=== PATIENT | female | born 2005 | race African-American/Black ===

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

== ENCOUNTER 2024-05-29 17:14 | Emergency (ER) | payer OTHER ==
[2024-05-29] MEDS ORDERED: NA CHLORIDE 0.9% 1,000 ML ONE (17:31)
[2024-05-29 17:40] LABS: Absolute Eosinophils 0.1 K/uL (0-0.5); Absolute Lymphocytes (CBC) 1.8 K/uL (0.7-4.9); Absolute Monocytes 0.9 K/uL (0.1-1.3); Absolute Neutrophil 6.7 K/uL (1.8-8.0); Basophils % 0.3 % (0-1.3); Eosinophils % 1.3 % (0-4.4); Hematocrit 27.2 % (36.0-45.0); Hemoglobin 8.7 g/dL (12.0-15.0); Lymphocytes % 18.7 % (15.3-44.8); MCH 22.3 pg (27.0-35.0); MCHC 31.9 g/dL (32.0-36.0); MCV 69.9 fL (80-100); MPV 7.8 fL (7.6-11.3); Monocytes % 9.8 % (3.3-12.3); Neutrophils % 69.9 % (41.7-73.7); Platelets 281 thou/uL (152-406); RBC Red Blood Cell Count 3.89 M/uL (3.86-4.86); Red Cell Distribution Width 18.4 % (12.1-15.2)
[2024-05-29 17:48] LABS: Anion Gap 10.7 mEq/L (5.0-15.0); Potassium 3.7 mEq/L (3.5-5.1)
--- NOTE | 2024-05-29 18:04 | ER ---
Nurse's Notes [facility] Name: Kate Armas Age: 19 yrs Sex: Female : 2005 Arrival Date: 05/29/2024 Time: 17:14 Bed 1 Private MD: Diagnosis: 36 weeks gestation of -early active labor;Anemia, unspecified Presentation: 05/29 17:24 Chief complaint: Patient states: "I'm 35 weeks and started having tightness in ko1 my abdomen. About 1 hr ago, I think my water broke and I had a thick/white discharge pass. My OB is Dr. Meyres in [facility].". Coronavirus screen: At this time, the client does not indicate any symptoms associated with coronavirus-19. Ebola Screen: No symptoms or risks identified at this time. Initial Sepsis Screen: Does the patient meet any 2 criteria? No. Patient's initial sepsis screen is negative. Does the patient have a suspected source of infection? No. Patient's initial sepsis screen is negative. Risk Assessment: Do you want to hurt yourself or someone else? Patient reports no desire to harm self or others. Onset of symptoms was May 29, 2024. 17:24 Method Of Arrival: Wheelchair ko1 17:24 Acuity: ORTEGA 2 ko1 Triage Assessment: 17:26 General: Appears in no apparent distress. Behavior is cooperative. Pain: Denies pain. ko1 EENT: No signs and/or symptoms were reported regarding the EENT system. Neuro: Level of Consciousness is awake, alert, obeys commands, Oriented to person, place, time, situation, Appropriate for age. Cardiovascular: Patient's skin is warm and dry. Respiratory: Airway is patent Respiratory effort is even, unlabored, Respiratory pattern is regular, symmetrical. GI: No signs and/or symptoms were reported involving the gastrointestinal system. : No signs and/or symptoms were reported regarding the genitourinary system. Derm: Skin is pink, warm \\T\\ dry. Musculoskeletal: Range of motion: intact in all extremities. 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 - Infectious Disease History:: Denies. - Social history:: Smoking status: Patient denies any tobacco usage or history of. - Family history:: not pertinent. Screenin:27 [facility] ED Fall Risk Assessment (Adult) History of falling in the last 3 months, ko1 including since admission No falls in past 3 months (0 pts) Confusion or Disorientation No (0 pts) Intoxicated or Sedated No (0 pts) Impaired Gait No (0 pts) Mobility Assist Device Used No (0 pt) Altered Elimination No (0 pt) Score/Fall Risk Level 0 - 2 = Low Risk Oriented to surroundings, Maintained a safe environment, Educated pt \\T\\ family on fall prevention, incl call for assistance when getting out of bed. Abuse screen: Denies threats or abuse. Nutritional screening: No deficits noted. Tuberculosis screening: No symptoms or risk factors identified. Assessment: 17:25 General: Appears in no apparent distress. Behavior is calm, cooperative, appropriate ko1 for age. Pain: Denies pain. Neuro: No deficits noted. Cardiovascular: No deficits noted. Respiratory: No deficits noted. GI: No deficits noted. : No deficits noted. EENT: No deficits noted. Derm: No deficits noted. Musculoskeletal: No deficits noted. Vital Signs: 17:24 BP 138 / 62; Pulse 96; Resp 18; Temp 98; Pulse Ox 100% on R/A; Weight 99.79 kg; Height ko1 5 ft. 5 in. ; Pain 0/10; 17:25 BP 138 / 62; Pulse 92; Resp 16; Pulse Ox 99% ; ko1 18:30 BP 124 / 70; Pulse 88; Resp 16; Pulse Ox 99% ; ko1 17:24 Body Mass Index 36.61 (99.79 kg, 165.1 cm) ko1 17:24 Pain Scale: Adult ko1 Vitals: 17:27 Heart Tones 140 bpm. ko1 ED Course: 17:19 Patient arrived in ED. im 17:21 Nena Eckert RN is Primary Nurse. ko1 17:22 Georges Rodriguez MD is Attending Physician. haroon 17:24 Arm band placed on. ko1 17:25 Door closed. Noise minimized. Lights dimmed. Warm blanket given. Pillow given. ko1 17:25 Assist provider with pelvic exam: Patient tolerated well. ko1 17:26 Triage completed. ko1 17:28 Placed in gown. Bed in low position. Call light in reach. Side rails up X 1. Provided ko1 Education on: press call light if needing anything. Client placed on continuous cardiac and pulse oximetry monitoring. NIBP monitoring applied. 17:30 Initial lab(s) drawn, by hi, sent to lab. Inserted saline lock: 20 gauge in left ap3 antecubital area, using aseptic technique. Blood collected. 17:57 TRANSVAG OB CERVIX ASSESSMENT In Process Unspecified. EDMS 17:58 US OB Limited In Process Unspecified. EDGA 18:08 \\T\\[address] Rodriguez with Summer from the [facility] Transfer center/ \\T\\1750 administrative approval given to Dr. Rodriguez by Summer Mchugh Rn/ patient has been accepted to [facility] Lidia\\T\\Valerie. Dr. Ruy Burgess has accepted the patient in transfer/ report to be called to [phone]. 18:30 Patient transferred, IV remains in place. ko1 Administered Medications: 17:33 Drug: NS 0.9% IV 1000 ml IV at 1 bolus Per protocol; 1000 mL bolus Route: IV; Rate: 1 ko1 bolus; Site: left antecubital; Medication: 17:25 VIS not applicable for this client. ko1 Outcome: 18:04 ER care complete, transfer ordered by MD. patiño 18:30 Transferred by ground EMS to [facility], Transfer form ko1 completed. 18:30 Condition: stable 18:30 Instructed on the need for transfer, 18:55 Patient left the ED. ko1 Signatures: Dispatcher [employer] Georges Velazquez MD MD cha Prokisch, Amanda, RN RN ap3 Katarina Vang Kathy, RN RN ko1 Pema Rothman Corrections: (The following items were deleted from the chart) 18:31 17:27 2, Full Term 2, Premature 0, 0, Living 1, unknown ko1 ko1
--- NOTE | 2024-05-29 18:04 | EDPHYS ---
[facility] Name: Kate Armas Age: 19 yrs Sex: Female : 2005 Arrival Date: 05/29/2024 Time: 17:14 Bed 1 Private MD: ED Physician Georges Rodriguez HPI: 05/29 17:40 This 19 yrs old Black Female presents to ER via Wheelchair with complaints of 35 weeks haroon , possible water breaking. 17:40 The patient presents with abdominal pain in the lower abdomen. Onset: The haroon symptoms/episode began/occurred this morning. The patient presents to the emergency department with possible uterine contractions, irregular. The estimated gestational age is 36 weeks. Previous pregnancies: in previous pregnancies patient has had vaginal delivery. 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 - Infectious Disease History:: Denies. - Social history:: Smoking status: Patient denies any tobacco usage or history of. - Family history:: not pertinent. ROS: 17:40 Constitutional: Negative for fever, chills, and weight loss, Eyes: Negative for injury, haroon pain, redness, and discharge, ENT: Negative for injury, pain, and discharge, Neck: Negative for injury, pain, and swelling, Cardiovascular: Negative for chest pain, palpitations, and edema, Respiratory: Negative for shortness of breath, cough, wheezing, and pleuritic chest pain, Exam: 17:44 Constitutional: This is a well developed, well nourished patient who is awake, alert, haroon and in no acute distress. Head/Face: Normocephalic, atraumatic. Eyes: Pupils equal round and reactive to light, extra-ocular motions intact. Lids and lashes normal. Conjunctiva and sclera are non-icteric and not injected. Cornea within normal limits. Periorbital areas with no swelling, redness, or edema. ENT: Nares patent. No nasal discharge, no septal abnormalities noted. Tympanic membranes are normal and external auditory canals are clear. Oropharynx with no redness, swelling, or masses, exudates, or evidence of obstruction, uvula midline. Mucous membranes moist. Neck: Trachea midline, no thyromegaly or masses palpated, and no cervical lymphadenopathy. Supple, full range of motion without nuchal rigidity, or vertebral point tenderness. No Meningismus. Chest/axilla: Normal chest wall appearance and motion. Nontender with no deformity. No lesions are appreciated. Cardiovascular: Regular rate and rhythm with a normal S1 and S2. No gallops, murmurs, or rubs. Normal PMI, no JVD. No pulse deficits. Respiratory: Lungs have equal breath sounds bilaterally, clear to auscultation and percussion. No rales, rhonchi or wheezes noted. No increased work of breathing, no retractions or nasal flaring. Abdomen/GI: Soft, non-tender, with normal bowel sounds. No distension or tympany. No guarding or rebound. No evidence of tenderness throughout. Back: No spinal tenderness. No costovertebral tenderness. Full range of motion. Skin: Warm, dry with normal turgor. Normal color with no rashes, no lesions, and no evidence of cellulitis. MS/ Extremity: Pulses equal, no cyanosis. Neurovascular intact. Full, normal range of motion. Neuro: Awake and alert, GCS 15, oriented to person, place, time, and situation. Cranial nerves II-XII grossly intact. Motor strength 5/5 in all extremities. Sensory grossly intact. Cerebellar exam normal. Normal gait. Psych: Awake, alert, with orientation to person, place and time. Behavior, mood, and affect are within normal limits. Vital Signs: 17:24 BP 138 / 62; Pulse 96; Resp 18; Temp 98; Pulse Ox 100% on R/A; Weight 99.79 kg; Height ko1 5 ft. 5 in. ; Pain 0/10; 17:25 BP 138 / 62; Pulse 92; Resp 16; Pulse Ox 99% ; ko1 18:30 BP 124 / 70; Pulse 88; Resp 16; Pulse Ox 99% ; ko1 17:24 Body Mass Index 36.61 (99.79 kg, 165.1 cm) ko1 17:24 Pain Scale: Adult ko1 MDM: 17:22 Patient medically screened. haroon 17:48 Differential diagnosis: Rkaig felton, delivery of , urinary tract infection. haroon Data reviewed: vital signs, nurses notes, lab test result(s), radiologic studies, ultrasound. Consideration of Admission/Observation Escalation of care including admission/observation considered. I considered the following discharge prescriptions or medication management in the emergency department Medications were administered in the Emergency Department. See MAR. Independent interpretation of the following test(s) in the Emergency Department Radiology Department Ultrasound: My interpretation is ob usg. Test considered but Not performed: MRI: no abd mri. Historians other than the Patient: pt well informed. Care significantly affected by the following chronic conditions: none, a0. 05/29 17:23 Order name: Abo/rh Typing; Complete Time: 18:36 [facility] 05/29 17:23 Order name: Basic Metabolic Panel; Complete Time: 18:36 [facility] 05/29 17:23 Order name: CBC with Diff [facility] 05/29 17:23 Order name: US OB Limited; Complete Time: 18:36 [facility] 05/29 17:57 Order name: TRANSVAG OB CERVIX ASSESSMENT; Complete Time: 18:36 EDND 05/29 17:23 Order name: IV Saline Lock; Complete Time: 17:30 [facility] 05/29 17:23 Order name: Labs collected and sent; Complete Time: 17:30 haroon 05/29 17:23 Order name: NPO; Complete Time: 17:28 [facility] 05/29 17:23 Order name: Misc. Order: toco on; Complete Time: 17:30 haroon Administered Medications: 17:33 Drug: NS 0.9% IV 1000 ml IV at 1 bolus Per protocol; 1000 mL bolus Route: IV; Rate: 1 ko1 bolus; Site: left antecubital; Disposition Summary: 05/29/24 18:04 Transfer Ordered Notes: [facility] Reason: Higher level of care haroon Condition: Stable haroon Problem: new haroon Symptoms: have improved haroon Accepting Physician: to l\T\rehana [facility] dr thelma taylor(05/29/24 18:55) ko1 Diagnosis - 36 weeks gestation of - early active labor haroon - Anemia, unspecified haroon Forms: - Medication Reconciliation Form haroon - SBAR form haroon Signatures: Dispatcher [employer] EDGeorges Neff MD MD haroon Babar, Nena, RN RN ko1 Corrections: (The following items were deleted from the chart) 18:36 18:04 to l\T\d dr thelma sexton cha, cha 18:55 18:36 to l\T\d dr thelma sexton cha ko1
--- NOTE | 2024-05-29 18:15 | RAD REPORT ---
EXAM DESCRIPTION: US - OB Limited - 05/29/2024 5:56 pm CLINICAL HISTORY: ABD CRAMPING, COMPARISON: OB Complete dated 01/19/2022; TRANSVAG OB CERVIX ASSESSMENT dated 05/29/2024 FINDINGS: Single viable IUP with positive heart tones. Cephalic presentation . Placenta: Posterior. No previa Femur length: 6.5 cm, 33 week 4 day heart rate: 140 bpm REBA: 11.6 cm, within normal limits The cervix measures 3.8 cm. There is funneling at the internal cervical os. IMPRESSION: 1. Single cephalic presenting gestation measuring 33 week 4 day. 2. REBA is within normal limits. 3. Mild funneling is present at the internal cervical os. The cervix measures 3.8 cm which is within normal limits.
--- NOTE | 2024-05-29 18:15 | RAD REPORT ---
EXAM DESCRIPTION: US - TRANSVAG OB CERVIX ASSESSMENT - 05/29/2024 5:56 pm CLINICAL HISTORY: pain COMPARISON: No comparisons FINDINGS: Single viable IUP with positive heart tones. Cephalic presentation . Placenta: Posterior. No previa Femur length: 6.5 cm, 33 week 4 day heart rate: 140 bpm REBA: 11.6 cm, within normal limits The cervix measures 3.8 cm. There is funneling at the internal cervical os. IMPRESSION: 1. Single cephalic presenting gestation measuring 33 week 4 day. 2. REBA is within normal limits. 3. Mild funneling is present at the internal cervical os. The cervix measures 3.8 cm which is within normal limits.
[2024-05-29 19:26] LABS: Anisocytosis 1+; Blood Morphology Comment NOTED (NOT SEEN); Platelet Estimate ADEQ; Poikilocytosis 1+; White Blood Cell Scan OK (OK)
[2024-05-30 07:09] VITALS: TEMP 98
[2024-05-30 07:10] VITALS: O2SAT 99
[2024-05-30 07:11] VITALS: BP 124/70
== END 2024-05-29 18:55 | disposition short-term general hospital (02) ==
LOC: ER 17:14
DX: O60.03 Preterm labor without delivery, third trimester (principal); O99.013 Anemia complicating pregnancy, third trimester; Z3A.36 36 weeks gestation of pregnancy
CPT/HCPCS: 85025; 80048; 36415; 86900; 86901; 76815; 76817; 99285; J7030